=== PATIENT | female | born 1965 | race African-American/Black ===

== ENCOUNTER 2018-07-25 08:29 | Day surgery (SDC) | payer OTHER ==
[2018-07-24 17:58] VITALS: BMI 23.6
[2018-07-25] MEDS ORDERED: MIDAZOLAM HCL 2 MG/2 ML SINGLE DOSE VIAL ONE (09:43)
[2018-07-25] MEDS ORDERED: ceFAZolin SODIUM 1 GM VIAL IVPB ONE (10:10)
[2018-07-25] MEDS ORDERED: oxyCODONE HCL 5 MG TABLET PO PRN ×2 (11:10→12:05)
--- NOTE | 2018-07-25 11:10 | OP ---
Operative Note - Note: Operative Date: 07/25/18 Pre-Operative Diagnosis: large left kidney stone Operation: cysto/left ureteroscopy/laser litho/stent Findings: large left stones Post-Operative Diagnosis: Same as Pre-op Surgeon: Ramy Azar Anesthesia: General Specimens Removed: stone frag Operative Report Dictated: Yes
[2018-07-25] MEDS ORDERED: ELECTROLYTE-148 SOLN 1,000 ML IV SCH (11:15)
[2018-07-25] MEDS ORDERED: ONDANSETRON 4 MG/2 ML VIAL IVPUSH PRN (12:05)
[2018-07-25] MEDS ORDERED: LACTATED RINGERS SOLUTION 1,000 ML IV SCH (12:15)
--- NOTE | 2018-07-25 13:15 | OP ---
DATE OF OPERATION: DATE OF DICTATION: 07/25/2018 PREOPERATIVE DIAGNOSIS: Large left kidney stones. POSTOPERATIVE DIAGNOSIS: Large left kidney stones. PROCEDURE: Cystoscopy, retrograde pyelogram, left ureteroscopy, laser lithotripsy, stone basketing, and stent placement. SURGEON: Ramy Azar MD INDICATION: Patient is a 53-year-old female noted to have large left kidney stones for workup of hematuria. After reviewing treatment options, patient elected to undergo ureteroscopy and laser lithotripsy in a staged fashion due to large stone burden. She understood she would need more than 1 procedure and possible sandwich procedure with ESWL. Patient agreed to have ureteroscopy and laser lithotripsy as the initial procedure. Informed consent was obtained. DESCRIPTION OF PROCEDURE: Patient was taken to the OR and placed supine on the operative table. After cardiac monitoring was administered and general anesthesia was established, she was prepped and draped in dorsal lithotomy position. The 22-sheath cystoscope was inserted into the urethra without any difficulty. Urethra was normal. The bladder was then visualized. No tumors or stones noted in the bladder. Attention was turned to the left ureteral orifice. It was intubated with ureteral catheter. Contrast was injected for retrograde pyelogram. A large 2-cm stone was seen in the renal pelvis with some mild hydronephrosis as well as multiple stones in the left lower pole. A guidewire was advanced into the ureteral pelvis. Alongside the guidewire, dual lumen catheter was advanced and the second guidewire was advanced to the renal pelvis. A large stone was seen in the renal pelvis with a lot of periureteral edema due to the impacted stone. Using the 365-micron laser fiber at a setting of 15 Hz and 1.0 joules, the stone was pulverized to fine dust and 1- to 2-mm fragments until the entire 2-cm stone was broken up. At this point, due to all the debris that was caused from the fragmenting of the stone, visualization was not clear, and so it was determined that at a later date she would return for additional procedure to treat the other stones in the lower pole. At this point, the ureteroscope was removed, and a 7-Yemeni 24-cm double pigtail stent was then advanced in a monorail fashion. Fluoroscopy confirmed the stent being in position. The patient was then awoken from anesthesia and transferred to recovery in stable condition. There were no complications. Estimated blood loss was minimal. Felisa HINSON/[id number]
[2018-07-25 14:00] VITALS: BP 140/80; PULSE 67; TEMP 97.7
--- NOTE | 2018-07-26 09:32 | PATH ---
Surgical Pathology Report Patient Name: SANA MARTE [facility]. Rec. #: [id number] /Age/Gender: 1965 (Age: 53) / F Account: [id number] Location: [facility] Taken: 07/25/2018 Received: 07/25/2018 Reported: 07/26/2018 Physicians: Ramy Azar M.D. Specimen(s) Received LEFT URETERAL CALCULI Clinical History Left ureteral calculi Final Diagnosis URETERAL CALCULI, LEFT, LASER LITHOTRIPSY: URETEROLITHIASIS. MACROSCOPIC DIAGNOSIS. Electronically Signed Martita Stone M.D.
[2018-08-01 16:27] LABS: CA OXALATE MONOHYDR. 75 % (.); CALCIUM PHOSPHATE 15 % (.); SIZE 4x3x2 mm (.)
== END 2018-07-25 13:50 | disposition home or self-care (01) ==
LOC: JASU-SURG 08:29
PROVIDERS: ATTEND Urology
PROC: 0TF48ZZ Fragmentation in Left Kidney Pelvis, Via Natural or Artificial Opening Endoscopic (ICD-10-PCS; principal; 2018-07-25 10:00)
PROC: 0T778DZ Dilation of Left Ureter with Intraluminal Device, Via Natural or Artificial Opening Endoscopic (ICD-10-PCS; 2018-07-25 10:00)
PROC: BT1FYZZ Fluoroscopy of Left Kidney, Ureter and Bladder using Other Contrast (ICD-10-PCS; 2018-07-25 10:00)
DX: N20.0 Calculus of kidney (principal)
CPT/HCPCS: 36415; 76000-TC-FY; 82360; 84703; 88300-TC; 94760

== ENCOUNTER 2018-08-06 06:45 | Day surgery (SDC) | payer OTHER ==
[2018-08-05 19:30] VITALS: BMI 23.6
[2018-08-06] MEDS ORDERED: MIDAZOLAM HCL 2 MG/2 ML SINGLE DOSE VIAL ONE ×2 (08:29)
[2018-08-06] MEDS ORDERED: ceFAZolin SODIUM 1 GM VIAL IVPB ONE (08:30)
[2018-08-06] MEDS ORDERED: oxyCODONE HCL 5 MG TABLET PO PRN (08:46)
--- NOTE | 2018-08-06 08:48 | OP ---
Operative Note - Note: Operative Date: 08/06/18 Pre-Operative Diagnosis: LK stones Operation: ESWL Post-Operative Diagnosis: Same as Pre-op Anesthesia: General Estimated Blood Loss (mls): 0 Operative Report Dictated: Yes
[2018-08-06] MEDS ORDERED: DEXTROSE 5%-0.45% SALINE 1,000 ML IV SCH (09:00)
[2018-08-06 14:45] VITALS: BP 106/61; PULSE 56; TEMP 98.1
--- NOTE | 2018-08-06 15:30 | OP ---
DATE OF OPERATION: 08/06/2018 PREOPERATIVE DIAGNOSIS: Left kidney stone. POSTOPERATIVE DIAGNOSIS: Left kidney stone. PROCEDURE: Extracorporeal shock-wave lithotripsy. SURGEON: Julio Rapp MD INDICATION: The patient is a 53-year-old female with a history of large left kidney stone burden, status post laser lithotripsy of a 2-cm left renal pelvic stone approximately 2 weeks ago and now taken to the OR for ESWL of left lower pole stones and midpole stones that she had that could not be treated at the time of her laser lithotripsy. DESCRIPTION: Patient taken to the OR, supine on operating table, on a fluoro table. Under active fluoroscopy and ultrasound, approximately 2 cm stone burden was seen in the mid to lower pole. Using ultrasound and fluoroscopic guidance, the stones were centered in the treatment zone and 2500 shocks were delivered. Patient tolerated the procedure well and then transferred to recovery room in stable condition. There were no complications. There was no blood loss. JULIO RAPP M.D. JOSE [id number]
== END 2018-08-06 15:00 | disposition home or self-care (01) ==
LOC: JASU-SURG 06:45
PROVIDERS: ATTEND Urology
PROC: 0TF4XZZ Fragmentation in Left Kidney Pelvis, External Approach (ICD-10-PCS; principal; 2018-08-06 08:15)
DX: N20.0 Calculus of kidney (principal)
CPT/HCPCS: 84703

== ENCOUNTER 2018-08-29 06:19 | Day surgery (SDC) | payer OTHER ==
[2018-08-27 12:57] VITALS: BMI 22.8
[2018-08-29] MEDS ORDERED: SEVOFLURANE 250 ML BTL ONE (07:32)
[2018-08-29] MEDS ORDERED: DEXAMETHASONE SOD PHOSPHATE 4 MG/1 ML VIAL ONE (07:46)
[2018-08-29] MEDS ORDERED: PROPOFOL 20 ML ONE (07:49)
[2018-08-29] MEDS ORDERED: ONDANSETRON 4 MG/2 ML VIAL IVPUSH PRN (08:17)
[2018-08-29] MEDS ORDERED: oxyCODONE HCL 5 MG TABLET PO PRN ×2 (08:17→08:51)
[2018-08-29] MEDS ORDERED: LACTATED RINGERS SOLUTION 1,000 ML IV SCH (08:30)
--- NOTE | 2018-08-29 08:53 | OP ---
Operative Note - Note: Operative Date: 08/29/18 Pre-Operative Diagnosis: left kidneystones Operation: cysto/retrograde/left URS/laser litho/stone basket/stent Post-Operative Diagnosis: Same as Pre-op Surgeon: Ramy Azar Anesthesia: General Operative Report Dictated: Yes
[2018-08-29] MEDS ORDERED: ELECTROLYTE-148 SOLN 1,000 ML IV SCH (09:00)
--- NOTE | 2018-08-29 09:24 | OP ---
DATE OF OPERATION: DATE OF DICTATION: 08/29/2018 PREOPERATIVE DIAGNOSIS: Left kidney stone. POSTOPERATIVE DIAGNOSIS: Left kidney stone and left ureteral stone. PROCEDURE PERFORMED: Cystoscopy, ureteroscopy, laser lithotripsy, stone basketing and stent placement. SURGEON: Julio Rapp MD INDICATIONS: The patient is a 53-year-old female with a very large stone burden , status post ureteroscopy and ESWL in the past. She has had 2 prior proceduresdue to the large stone burden, now taking to the OR for her third treatment. DESCRIPTION OF PROCEDURE: The patient was taken to the OR and placed supine on the table. After cardiac monitoring was administered and general anesthesia was established. She was prepped and draped in the dorsal lithotomy position. The rigid cystoscope was inserted into the urethra and bladder without difficulty. Attention was turned to the left ureteral orifice. This was intubated with a ureteral catheter and advanced to the left renal pelvis. Using a grasper, the previous stent was then removed. A rigid ureteroscope was advanced into the ureter. The distal ureter had several stone fragments that were basketed out. The rest of the ureter was inspected and no other fragments were noted. At this point the rigid ureteroscope was then removed and the flexible ureteroscope was advanced in the kidney. Several large-sized stones were seen, 3 to 4 mm in size. These were pulverized to fine dust with the 200-micron laser fiber. Some of these small fragments were then removed with the stone basket and sent to Pathology for analysis. There were multiple small stones residual, 1 to 2 mm in size. These should pass with active hydration. The ureteroscope was then removed and an 8-Mongolian 24-cm double pigtail stent was then advanced in a monorail fashion. Fluoroscopy confirmed the stent being in good position. The patient was awoken from anesthesia and transferred to the recovery room in stable condition. There were no complications. Estimated blood loss was minimal. JULIO RAPP M.D. JOSE [id number] MTDD
[2018-08-29 14:32] VITALS: PULSE 78
[2018-08-29 16:33] VITALS: BP 128/80; TEMP 98.1
--- NOTE | 2018-08-30 17:08 | PATH ---
Surgical Pathology Report Patient Name: SANA MARTE Med. Rec. #: [id number] /Age/Gender: 1965 (Age: 53) / F Account: [id number] Location: [facility] Taken: 08/29/2018 Received: 08/29/2018 Reported: 08/30/2018 Physicians: Ramy Azar M.D. Specimen(s) Received A: OLD STENT B: KIDNEY CALCULI Clinical History Left kidney stone Final Diagnosis A. OLD STENT, REMOVAL: CONSISTENT WITH URETERAL STENT. MACROSCOPIC DIAGNOSIS. B. KIDNEY STONE, LASER LITHOTRIPSY: RENAL CALCULI. MACROSCOPIC DIAGNOSIS. Electronically Signed Martita Stone M.D. Gross Description A. Received fresh labeled "old stent," is a 35 cm in length blue-green, coiled portion of tubing, consistent with a ureteral stent. No soft tissue is present. No sections are submitted, gross only. B. Received fresh labeled "kidney stones," is a 0.8 x 0.5 x 0.3 cm aggregate of ma, irregular to fragmented calculi. The specimen is sent for chemical analysis. DL/08/29/2018 saudi08/29/2018
== END 2018-08-29 06:30 | disposition home or self-care (01) ==
LOC: JASU-SURG 06:19
PROVIDERS: ATTEND Urology
PROC: 0TF48ZZ Fragmentation in Left Kidney Pelvis, Via Natural or Artificial Opening Endoscopic (ICD-10-PCS; principal; 2018-08-29 07:30)
PROC: 0TF78ZZ Fragmentation in Left Ureter, Via Natural or Artificial Opening Endoscopic (ICD-10-PCS; 2018-08-29 07:30)
PROC: 0T778DZ Dilation of Left Ureter with Intraluminal Device, Via Natural or Artificial Opening Endoscopic (ICD-10-PCS; 2018-08-29 07:30)
DX: N20.1 Calculus of ureter (principal); N20.0 Calculus of kidney
CPT/HCPCS: 36415; 76000-TC-FY; 82360; 84703; 88300-TC; 94760

== ENCOUNTER 2018-12-31 11:18 | Emergency (ER) | payer OTHER ==
[2018-12-31 11:27] VITALS: BMI 23.3
[2018-12-31] MEDS ORDERED: CYCLOBENZAPRINE HCL 10 MG TABLET (FP) PO ONE (13:07)
[2018-12-31] MEDS ORDERED: KETOROLAC TROMETHAMINE 30 MG/1 ML VIAL IVPUSH ONE (13:07)
[2018-12-31] MEDS ORDERED: CYCLOBENZAPRINE HCL 10 MG TABLET (FP) ONE (13:24)
[2018-12-31] MEDS ORDERED: KETOROLAC TROMETHAMINE 30 MG/1 ML VIAL ONE (13:24)
[2018-12-31 13:59] LABS: BASO % 0.7 % (0-2.0); EOS % 1.2 % (0-4.5); HEMATOCRIT 38.6 % (32.4-45.2); HEMOGLOBIN 12.9 GM/dL (10.7-15.3); LYMPH % 27.3 % (8-40); MCH 29.2 pg (25.7-33.7); MCHC 33.3 g/dl (32.0-36.0); MEAN CELL VOLUME 87.7 fl (80-96); MEAN PLT VOLUME 9.5 fl (7.5-11.1); NEUT % 62.8 % (42.8-82.8); PLATELET COUNT 178 K/MM3 (134-434); RDW 13.8 % (11.6-15.6)
--- NOTE | 2018-12-31 14:01 | PDOC ---
History of Present Illness - General Chief Complaint: Pain, Acute Stated Complaint: ABD/BACK PAIN Time Seen by Provider: 12/31/18 12:52 History Source: Patient Exam Limitations: No Limitations - History of Present Illness Travel History: No Initial Comments: 12/31/18 14:09 53-year-old female presents to ED with complaints of right flank and right back pain for the past 2 days worsened with movement. Patient states pain began after lifting an item on the floor when lying on her bed face down using her right arm. Patient states initially felt a pinch and when she woke up the pain was severe which she describes a sharp and electric-like to area. Patient has no complaints of hematuria, fever, rash, abdominal distention, change in bowel pattern, or nausea. Patient states recent left ureteral stent placement by Dr. Azar secondary to renal colic Timing/Duration: reports: intermittent Quality: reports: moderate, sharpness Abdominal Pain Onset Location: reports: flank Pain Radiation: reports: back Activities at Onset: reports: exertion Aggravating Factors: improves with: Exertion Alleviating Factors: improves with: Rest Past History - Past Medical History Allergies/Adverse Reactions: Allergies Allergy/AdvReac Type Severity Reaction Status Date / Time iodine Allergy Severe Rash Verified 12/31/18 11:23 Home Medications: Ambulatory Orders Amlodipine Besylate [Norvasc -] 5 mg PO DAILY 07/24/18 Hydrochlorothiazide 12.5 mg PO DAILY 08/06/18 Multivitamin [One-Daily Multi-Vitamin] 1 tab PO DAILY 08/27/18 Anemia: No Asthma: No Cancer: No Cardiac Disorders: No CVA: No COPD: No CHF: No Dementia: No Diabetes: No GI Disorders: No Disorders: Yes (KIDNEY STONES) HTN: Yes Hypercholesterolemia: No Liver Disease: No Seizures: No Thyroid Disease: No - Surgical History Abdominal Surgery: Yes (EXPLORATORY ABD SX 2007OVARIAN/INTESTINAL) Appendectomy: Yes Cardiac Surgery: No Cholecystectomy: No Lung Surgery: No Neurologic Surgery: No - Immunization History Immunization Up to Date: Yes - Suicide/Smoking/Psychosocial Hx Smoking History: Never smoked Hx Alcohol Use: No Drug/Substance Use Hx: No Substance Use Type: None Hx Substance Use Treatment: No Patient Lives Alone: No Lives with/in: spouse/SO Review of Systems - Review of Systems Able to Perform ROS?: Yes Constitutional: No: Symptoms Reported HEENTM: No: Symptoms Reported Respiratory: No: Symptoms reported Cardiac (ROS): No: Symptoms Reported ABD/GI: No: Symptoms Reported : Yes: Flank Pain Musculoskeletal: Yes: Back Pain, Muscle Pain (rt oblique) Integumentary: No: Symptoms Reported Neurological: No: Symptoms reported Hematologic/Lymphatic: No: Symptoms Reported *Physical Exam - Vital Signs Last Vital Signs Temp Pulse Resp BP Pulse Ox 98.2 F 61 18 130/77 98 12/31/18 11:25 12/31/18 11:25 12/31/18 11:25 12/31/18 11:25 12/31/18 11:25 - Physical Exam General Appearance: Yes: Nourished, Appropriately Dressed. No: Apparent Distress HEENT: positive: EOMI, ALVARO. negative: Pale Conjunctivae Neck: positive: Supple Respiratory/Chest: positive: Lungs Clear, Normal Breath Sounds. negative: Respiratory Distress, Accessory Muscle Use Cardiovascular: positive: Regular Rhythm, Regular Rate. negative: Murmur Gastrointestinal/Abdominal: positive: Soft, Tenderness (rt flank and rt cva tenderness) Musculoskeletal: positive: CVA Tenderness (R) Extremity: positive: Normal Inspection Integumentary: positive: Normal Color, Warm, Moist Neurologic: positive: Motor Strength 5/5 (ambulatory) ED Treatment Course - LABORATORY CBC & Chemistry Diagram: 12/31/18 13:45 12/31/18 13:45 - Medications Given in the ED: ED Medications Discontinued Medications Generic Name Dose Route Start Last Admin Trade Name Freq PRN Reason Stop Dose Admin Cyclobenzaprine HCl 5 mg 12/31/18 13:07 12/31/18 13:27 Flexeril - PO 12/31/18 13:08 5 mg ONCE ONE Administration Ketorolac Tromethamine 30 mg 12/31/18 13:07 12/31/18 13:35 Toradol Injection - IVPUSH 12/31/18 13:08 30 mg ONCE ONE Administration Medical Decision Making - Medical Decision Making 12/31/18 14:06 CC: rt flank and rt back pain worse with movement x 3 day s after lifting an item on the lesley, Recent left uretal stent placed secondary to renal colic. no urinary complaints, hematuria or fever Exam: reproducible rt flank and cva tenderness, no rash, Plan: labs, urine, flexeril and toradol 12/31/18 16:34 Laboratory Tests 12/31/18 12/31/18 12/31/18 13:45 13:45 13:45 WBC 5.0 Hgb 12.9 Hct 38.6 Absolute Neuts (auto) 3.2 Neutrophils % 62.8 Sodium 142 Potassium 3.5 Chloride 103 Carbon Dioxide 36 H Anion Gap 3 L BUN 11.8 Creatinine 0.6 Random Glucose 84 Calcium 9.3 Total Bilirubin 0.3 AST 18 ALT 33 Alkaline Phosphatase 87 Total Protein 7.1 Albumin 3.8 Lipase 140 Urine Blood Urine Nitrite Urine Bilirubin Ur Leukocyte Esterase Urine WBC (Auto) Urine RBC (Auto) 12/31/18 13:45 WBC Hgb Hct Absolute Neuts (auto) Neutrophils % Sodium Potassium Chloride Carbon Dioxide Anion Gap BUN Creatinine Random Glucose Calcium Total Bilirubin AST ALT Alkaline Phosphatase Total Protein Albumin Lipase Urine Blood 3+ H Urine Nitrite Negative Urine Bilirubin Negative Ur Leukocyte Esterase 2+ H Urine WBC (Auto) 13 Urine RBC (Auto) 118 CT shows multiple stones within the left kidney the largest measuring 8 mm In the lower pole. There is no evidence of hydroureteronephrosis or ureteral stone bilaterally. There is no CT evidence of acute process identified in the abdomen or pelvis. Patient states feeling better after receiving medication and wants to be discharged. Patient given tray as she is requesting to eat. Patient will be discharged home with Motrin and Flexeril secondary to muscle skeletal pain likely due to strain from lifting heavy item *DC/Admit/Observation/Transfer Diagnosis at time of Disposition: Abdominal muscle strain - Discharge Dispostion Disposition: HOME Condition at time of disposition: Improved - Referrals Referrals: Denis Lopez [Primary Care Provider] - - Patient Instructions Printed Discharge Instructions: DI for Abdominal Muscle Strain Additional Instructions: Avoid movements that trigger discomfort. Please take Motrin and Flexeril as prescribed and needed for discomfort. Ease increase your water intake secondary to multiple stones seen and left kidney which will promote movement of the stone hopefully - Post Discharge Activity
[2018-12-31 14:10] LABS: EPI CELLS 8.2 /HPF (0-5/HPF); HYALINE CASTS 6 /lpf (0-8); URINE APPEARANCE CLEAR; URINE BACTERIA 162.6 /hpf (NEGATIVE); URINE BILIRUBIN NEGATIVE (NEGATIVE); URINE COLOR YELLOW; URINE GLUCOSE (UA) NEGATIVE (NEGATIVE); URINE KETONE NEGATIVE (NEGATIVE); URINE LEUK ESTERASE 2+ (NEGATIVE); URINE NITRITE NEGATIVE (NEGATIVE); URINE PROTEIN NEGATIVE (NEGATIVE); URINE RBC 118 /hpf (0-4); URINE WBC 13 /hpf (0-5)
[2018-12-31 14:23] LABS: ALBUMIN 3.8 g/dl (3.4-5.0); BILIRUBIN,TOTAL 0.3 mg/dL (0.2-1); BLOOD UREA NITROGEN 11.8 mg/dL (7-18); CALCIUM 9.3 mg/dL (8.5-10.1); CREATININE 0.6 mg/dL (0.55-1.3); POTASSIUM 3.5 mmol/L (3.5-5.1); TOT PROT 7.1 g/dl (6.4-8.2)
[2018-12-31 16:54] VITALS: BP 124/74; PULSE 68; TEMP 98.1
== END 2018-12-31 16:57 | disposition home or self-care (01) ==
LOC: JER 11:18
PROC: 3E0333Z Introduction of Anti-inflammatory into Peripheral Vein, Percutaneous Approach (ICD-10-PCS; principal; 2018-12-31)
DX: S39.011A Strain of muscle, fascia and tendon of abdomen, initial encounter (principal); X50.0XXA Overexertion from strenuous movement or load, initial encounter; Y93.89 Activity, other specified; Y92.032 Bedroom in apartment as the place of occurrence of the external cause; Y99.8 Other external cause status; N20.0 Calculus of kidney; Z87.442 Personal history of urinary calculi; I10 Essential (primary) hypertension
CPT/HCPCS: 36415; 74176-TC; 80053; 81003; 83690; 85025; 87086; 99283-25

== ENCOUNTER 2020-05-13 06:40 | Day surgery (SDC) | payer OTHER ==
[2020-05-12 14:28] VITALS: BMI 24.0
[2020-05-13] MEDS ORDERED: IOHEXOL 300 MG/ML INFUS..BTL IV ONE ×2 (09:49→11:30)
[2020-05-13] MEDS ORDERED: PROPOFOL 20 ML ONE (10:23)
[2020-05-13] MEDS ORDERED: MIDAZOLAM HCL 2 MG/2 ML SINGLE DOSE VIAL ONE (10:23)
[2020-05-13] MEDS ORDERED: ceFAZolin SODIUM 1 GM VIAL IVPB ONE (11:00)
[2020-05-13] MEDS ORDERED: MINERAL OIL/PETROLATUM,WHITE 3.5 GM TUBE ONE (11:14)
[2020-05-13] MEDS ORDERED: ceFAZolin SODIUM 1 GM VIAL ONE (11:14)
[2020-05-13] MEDS ORDERED: DEXAMETHASONE SOD PHOSPHATE 4 MG/1 ML VIAL ONE (11:16)
[2020-05-13] MEDS ORDERED: FUROSEMIDE 40 MG/4 ML INJECTABLE VIAL ONE (11:31)
[2020-05-13] MEDS ORDERED: oxyCODONE HCL 5 MG TABLET PO PRN (12:06)
[2020-05-13] MEDS ORDERED: ELECTROLYTE-148 SOLN 1,000 ML IV SCH (12:15)
[2020-05-13] MEDS ORDERED: ONDANSETRON 4 MG/2 ML VIAL IVPUSH PRN (12:33)
[2020-05-13] MEDS ORDERED: MEPERIDINE HCL CARPU-JECT 25 MG/1 ML DISP.SYRIN IVPUSH ONE (12:38)
[2020-05-13] MEDS ORDERED: MEPERIDINE HCL 25 MG/ML VIAL ONE (12:42)
[2020-05-13] MEDS ORDERED: LACTATED RINGERS SOLUTION 1,000 ML IV SCH (12:45)
[2020-05-13] MEDS ORDERED: MEPERIDINE HCL 25 MG/ML VIAL IVPUSH ONE (12:48)
[2020-05-13 15:13] VITALS: BP 140/78; PULSE 73; TEMP 98.4
[2020-05-31 11:06] LABS: CA OXALATE MONOHYDR. 30%; SIZE 2 x 2; WEIGHT 3
== END 2020-05-13 14:50 | disposition home or self-care (01) ==
LOC: JASU-SURG 06:40
PROVIDERS: ATTEND Urology
PROC: 0TC48ZZ Extirpation of Matter from Left Kidney Pelvis, Via Natural or Artificial Opening Endoscopic (ICD-10-PCS; principal; 2020-05-13 10:00)
PROC: 0T778DZ Dilation of Left Ureter with Intraluminal Device, Via Natural or Artificial Opening Endoscopic (ICD-10-PCS; 2020-05-13 10:00)
DX: N20.0 Calculus of kidney (principal)
CPT/HCPCS: 36415; 76000-TC-FY; 82360; 88300-TC; 94760

== ENCOUNTER 2023-06-26 04:40 | Day surgery (SDC) | payer OTHER ==
[2023-06-18 13:28] VITALS: BMI 27.0
[2023-06-26] MEDS ORDERED: PROMETHAZINE HCL 25 MG/1 ML VIAL IVPB PRN (07:57)
[2023-06-26] MEDS ORDERED: oxyCODONE HCL 5 MG TABLET PO PRN (07:57)
[2023-06-26] MEDS ORDERED: ONDANSETRON 4 MG/2 ML VIAL IVPUSH PRN (07:57)
[2023-06-26] MEDS ORDERED: LACTATED RINGERS SOLUTION 1,000 ML IV SCH (08:00)
[2023-06-26] MEDS ORDERED: PROPOFOL 20 ML ONE (08:09)
[2023-06-26] MEDS ORDERED: MIDAZOLAM HCL 2 MG/2 ML SINGLE DOSE VIAL ONE (08:09)
[2023-06-26] MEDS ORDERED: ceFAZolin SODIUM 1 GM VIAL IVPB ONE (08:14)
[2023-06-26] MEDS ORDERED: ceFAZolin SODIUM 1 GM VIAL ONE (08:18)
[2023-06-26] MEDS ORDERED: LIDOCAINE HCL/PF 2% SDV 5ML VIAL ONE (08:18)
[2023-06-26] MEDS ORDERED: ONDANSETRON 4 MG/2 ML VIAL ONE (08:18)
[2023-06-26] MEDS ORDERED: DEXAMETHASONE SOD PHOSPHATE 4 MG/1 ML VIAL ONE (08:18)
[2023-06-26] MEDS ORDERED: SODIUM CHLORIDE 0.9% P/F 10 ML VIAL IJ ONE (08:18)
[2023-06-26] MEDS ORDERED: KETOROLAC TROMETHAMINE 30 MG/1 ML VIAL ONE (08:32)
[2023-06-26] MEDS ORDERED: DEXTROSE 5%-0.45% SALINE 1,000 ML IV SCH (08:45)
[2023-06-26 11:28] VITALS: BP 142/84; PULSE 76; RESP 16; TEMP 98.4
== END 2023-06-26 11:35 | disposition home or self-care (01) ==
LOC: JASU-SURG 04:40
PROVIDERS: ATTEND Urology
PROC: 0T778DZ Dilation of Left Ureter with Intraluminal Device, Via Natural or Artificial Opening Endoscopic (ICD-10-PCS; 2023-06-26)
PROC: 0TC48ZZ Extirpation of Matter from Left Kidney Pelvis, Via Natural or Artificial Opening Endoscopic (ICD-10-PCS; principal; 2023-06-26 07:30)
DX: N20.0 Calculus of kidney (principal)
CPT/HCPCS: 36415; 76000-TC-FY; 82360; 88300-TC; 94760; C1758; C2617